=== PATIENT | female | born 1970 | race Caucasian/White ===

== ENCOUNTER 2018-08-27 08:11 | Outpatient (CLI) | payer OTHER | END 2018-08-27 08:21 | disposition home or self-care (01) | LOC: TOM 08:11 | DX: R10.84 Generalized abdominal pain (principal) ==

== ENCOUNTER 2018-09-04 07:58 | Outpatient (CLI) | payer OTHER | END 2018-09-04 08:33 | disposition home or self-care (01) | LOC: LAB 07:58 | DX: D35.2 Benign neoplasm of pituitary gland (principal) ==

== ENCOUNTER 2018-09-04 14:46 | Outpatient (CLI) | payer OTHER | END 2018-09-04 14:52 | disposition home or self-care (01) | LOC: MAMO-SONO 14:46 | DX: N64.4 Mastodynia (principal); Z12.31 Encounter for screening mammogram for malignant neoplasm of breast; E04.2 Nontoxic multinodular goiter; R19.09 Other intra-abdominal and pelvic swelling, mass and lump ==

== ENCOUNTER 2018-09-27 08:47 | Outpatient (CLI) | payer OTHER | END 2018-09-27 08:54 | disposition home or self-care (01) | LOC: MRI 08:47 | DX: R19.00 Intra-abdominal and pelvic swelling, mass and lump, unspecified site (principal) | CPT/HCPCS: 72196 ==

== ENCOUNTER 2018-10-22 14:17 | Outpatient (CLI) | payer OTHER | END 2018-10-22 14:30 | disposition home or self-care (01) | LOC: RAD 501 14:17 | DX: J44.1 Chronic obstructive pulmonary disease with (acute) exacerbation (principal) ==

== ENCOUNTER 2018-11-05 06:00 | Day surgery (SDC) | payer OTHER ==
[~2018-11-05] VITALS: Ht 157.5 cm; Wt 103.4 kg
[~2018-11-05 06:00] MED LIST: COZAAR25 MG PO; MAXIMUM D310000 UNIT PO; SYNTHROID112 MCG PO; ZANTAC150 M3 PO; ZYRTEC10 MG PO
== END 2018-11-05 13:00 | disposition home or self-care (01) ==
LOC: OB/GYN 06:00 → O/R 06:00 → CIR.AMB 06:00 → OB/GYN 09:57 → EDSTATUS 10:30 → OB/GYN 10:48 → O/R 10:48 → OB/GYN 10:51 → O/R 12:30 → CIR.AMB 13:00 → OB/GYN 19:00
DX: N83.11 Corpus luteum cyst of right ovary (principal)

== ENCOUNTER 2020-07-22 08:52 | Outpatient (CLI) | payer OTHER | END 2020-07-22 09:11 | disposition HB | LOC: RAD 08:52 | PROVIDERS: ATTEND General Practice | DX: K57.90 Diverticulosis of intestine, part unspecified, without perforation or abscess without bleeding (principal); D25.9 Leiomyoma of uterus, unspecified; R10.84 Generalized abdominal pain; N83.291 Other ovarian cyst, right side ==

== ENCOUNTER 2020-08-10 08:42 | Outpatient (CLI) | payer OTHER | END 2020-08-10 09:01 | disposition home or self-care (01) | LOC: MAMO-SONO 08:42 | PROVIDERS: ATTEND General Practice | DX: Z12.31 Encounter for screening mammogram for malignant neoplasm of breast (principal); N64.4 Mastodynia; R92.0 Mammographic microcalcification found on diagnostic imaging of breast ==

== ENCOUNTER 2021-03-26 09:14 | Outpatient (CLI) | payer OTHER | END 2021-03-26 09:19 | disposition home or self-care (01) | LOC: SONOGRAMA 09:14 | PROVIDERS: ATTEND Obstetrics & Gynecology Gynecologic Oncology | DX: N83.291 Other ovarian cyst, right side (principal); N90.7 Vulvar cyst ==

== ENCOUNTER 2021-08-06 11:50 | Outpatient (CLI) | payer OTHER | END 2021-08-06 12:20 | disposition home or self-care (01) | LOC: PPH VACUNA 11:50 | PROVIDERS: ATTEND Emergency Medicine Pediatric Emergency Medicine | DX: Z23 Encounter for immunization (principal) ==